=== PATIENT | male | born 1985 | race Hispanic/Latino ===

== ENCOUNTER 2016-07-07 21:08 | Emergency (ER) | payer OTHER, SELFPAY ==
[2016-07-07 21:27] VITALS: BMI 273.1
[2016-07-07 21:29] VITALS: RESP 16; O2SAT 98
--- NOTE | 2016-07-07 21:33 | ED PDOC ---
Arrival/HPI - General Chief Complaint: GI Problem Time Seen by Provider: 07/07/16 21:32 Historian: Patient - History of Present Illness Narrative History of Present Illness (Text): 07/07/16 21:33 31 y/o male, no significant pmh, allergic to penicillin/vancomycin, c/o nausea/ vomiting started this morning. Pt. stated that he went out to drink last night which he had many bottles of drinks, woke up this morning with nausea and vomiting, stated that he has testicle pain from the vomiting, no night sweat, no penile discharge, no urinary symptoms, no other medical or psychological complaints. Past Medical History - Provider Review Nursing Documentation Reviewed: Yes - Psychiatric Hx Substance Use: No - Anesthesia Hx Anesthesia: No Family/Social History - Physician Review Nursing Documentation Reviewed: Yes Family/Social History: Unknown Family HX Smoking Status: Never Smoked Hx Alcohol Use: Yes Frequency of alcohol use: Socially Hx Substance Use: No Allergies/Home Meds Allergies/Adverse Reactions: Allergies Penicillins Allergy (Verified 07/07/16 21:27) RASH vancomycin Allergy (Verified 07/07/16 21:27) RASH ppd serum Allergy (Uncoded 07/07/16 21:27) RASH Review of Systems - Review of Systems Constitutional: absent: Fatigue, Fevers Eyes: absent: Vision Changes ENT: absent: Hearing Changes Respiratory: absent: Cough, Sputum Cardiovascular: absent: Chest Pain Gastrointestinal: Abdominal Pain, Nausea, Vomiting. absent: Diarrhea Genitourinary Male: absent: Dysuria, Frequency, Hematuria, Urinary Output Changes Musculoskeletal: absent: Arthralgias, Back Pain, Neck Pain Skin: absent: Rash, Pruritis, Skin Lesions, Laceration, Abscess Neurological: absent: Headache, Dizziness, Focal Weakness, Gait Changes, Speech Changes, Facial Droop, Disequilibrium, Seizure Physical Exam Vital Signs Reviewed: Yes Vital Signs Temp Pulse Resp BP Pulse Ox 07/07/16 21:28 99.2 F 91 H 16 121/83 98 Temperature: Afebrile Blood Pressure: Normal Pulse: Regular Respiratory Rate: Normal Appearance: Positive for: Well-Appearing, Non-Toxic, Comfortable Pain Distress: Mild Mental Status: Positive for: Alert and Oriented X 3 - Systems Exam Head: Present: Atraumatic, Normocephalic Pupils: Present: PERRL Extroacular Muscles: Present: EOMI Conjunctiva: Present: Normal Mouth: Present: Moist Mucous Membranes Neck: Present: Normal Range of Motion Respiratory/Chest: Present: Clear to Auscultation, Good Air Exchange. No: Respiratory Distress, Accessory Muscle Use Cardiovascular: Present: Regular Rate and Rhythm, Normal S1, S2. No: Murmurs Abdomen: Present: Tenderness (+epigastric tenderness, negative bailey.), Normal Bowel Sounds. No: Distention, Peritoneal Signs Genitourinary Male: Present: Normal External Genitalia, Circumcised Penis. No: Lesions, Penile Discharge, Testicle Tenderness, Penile Swelling, Masses, Erythema, Hernias, Testicle Swelling Back: Present: Normal Inspection Upper Extremity: Present: Normal Inspection. No: Cyanosis, Edema Lower Extremity: Present: Normal Inspection. No: Edema Neurological: Present: GCS=15, CN II-XII Intact, Speech Normal Skin: Present: Warm, Dry, Normal Color. No: Rashes Psychiatric: Present: Alert, Oriented x 3, Normal Insight, Normal Concentration Medical Decision Making ED Course and Treatment: 07/07/16 21:41 -labs -ua -testicular sonogram -IVF/pepcid/zofran -observe and reassess 07/07/16 23:39 -Labs are non-significant. -Sonogram show there is epidymyal cyst on the lt. testicle. -Pain resolved, eating and drinking well, wants to be discharged home, will discharge home. -Discharge home with pepcid, zofran, stay hydrated, follow up with your own pmd and urologist within 2 days, return to the ER for any new or worsening signs or symptoms. - Lab Interpretations Lab Results: 07/07/16 22:22 07/07/16 22:22 Lab Results 07/07/16 22:22: WBC 10.2, RBC 5.11, Hgb 16.6, Hct 46.1, MCV 90.2, MCH 32.5, MCHC 36.0, RDW 12.8, Plt Count 273, MPV 9.6, Gran % 74.8 H, Lymph % (Auto) 16.9 L, [place] % (Auto) 7.8 H, Eos % (Auto) 0.3 L, Baso % (Auto) 0.2, Gran # 7.63 H, Lymph # 1.7, [place] # 0.8 H, Eos # 0.0, Baso # 0.02, Sodium 140, Potassium 4.0, Chloride 96 L, Carbon Dioxide 31, Anion Gap 17, BUN 20, Creatinine 1.2, Est GFR ( Amer) > 60, Est GFR (Non-Af Amer) > 60, Random Glucose 93, Calcium 10.7 H, Magnesium 2.1, Total Bilirubin 1.3, AST 33, ALT 38, Alkaline Phosphatase 92, Total Protein 9.4 H, Albumin 5.1 H, Globulin 4.3, Albumin/ Globulin Ratio 1.2, Lipase 53, Salicylates < 1 L, Acetaminophen < 10.0 L, Alcohol, Quantitative < 10 I have reviewed the lab results: Yes Interpretation: No clinic. lab abnormalty - RAD Interpretation Radiology Orders: 07/07/16 21:37 TESTES DUPLEX COMPLETE [US] Stat EXAM: US Scrotum CLINICAL HISTORY: 31 years old, male; Pain; Scrotum pain; Additional info: Testicular pain TECHNIQUE: Real-time ultrasound of the scrotum with color Doppler and image documentation. COMPARISON: No relevant prior studies available. FINDINGS: Right testicle: Unremarkable in echogenicity and size measuring 4.8 x 2.3 x 3.2 cm. No mass. No torsion. Left testicle: Unremarkable in echogenicity and size measuring 5.6 x 2.1 x 3.5 cm. No mass. No torsion. Epididymides: The right epididymis is unremarkable. A left-sided epididymal head cyst is identified measuring 7.6 x 5.7 x 5.8 mm. Scrotum: Unremarkable. IMPRESSION: Left-sided epididymal head cyst, as detailed above. Dictated By: Candy Valero MD Dictated Date/Time: 07/07/162313 Signed By: Candy Valero MD Date Signed: [id number] Transcribed By: FERNANDO Transcribe Date/Time : 07/07/162313 Open Cut Examiner: Radiologist - Medication Orders Current Medication Orders: Discontinued Medications Famotidine (Pepcid) 20 mg IVP STAT STA Stop: 07/07/16 21:38 Last Admin: 07/07/16 22:29 Dose: 20 MG IVP Administration Document 07/07/16 22:29 [facility] (Rec: 07/07/16 22:29 [email or web address]) Charges for Administration # of IVP Administrations 1 Sodium Chloride (Sodium Chloride 0.9%) 1,000 mls @ 999 mls/hr IV .Q1H1M STA Stop: 07/07/16 22:37 Last Admin: 07/07/16 22:29 Dose: 999 MLS/HR eMAR Start Stop Document 07/07/16 22:29 [facility] (Rec: 07/07/16 22:29 [email or web address]) Intravenous Solution Start Date 07/07/16 Start Time 22:29 End Date 07/07/16 End time 23:30 Total Infusion Time 61 Ondansetron HCl (Zofran Inj) 4 mg IVP STAT STA Stop: 07/07/16 21:38 Last Admin: 07/07/16 22:29 Dose: 4 MG IVP Administration Document 07/07/16 22:29 [facility] (Rec: 07/07/16 22:29 [email or web address]) Charges for Administration # of IVP Administrations 1 - PA / [employer] / Resident Statement / has reviewed & agrees with the documentation as recorded. Disposition/Present on Arrival - Present on Arrival Any Indicators Present on Arrival: No History of DVT/PE: No History of Uncontrolled Diabetes: No Urinary Catheter: No History of Decub. 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 Prescriptions: Famotidine [Pepcid] 20 mg PO BID PRN #14 tab PRN Reason: Other Ondansetron [Zofran] 4 mg PO Q8H PRN #10 tab PRN Reason: Nausea/Vomiting Referrals: Eladio Arguello DO [Staff Provider] - Follow up with primary Sacha Hill MD [Staff Provider] - Follow up with primary Forms: WORK NOTE
[2016-07-07] MEDS ORDERED: Sodium Chloride 0.9% 1,000 ML IV STA (21:37)
[2016-07-07 22:33] LABS: ADD MANUAL DIFF? NO
[2016-07-07 22:42] LABS: BASO # 0.02 K/mm3 (0.0-2.0); BASO % 0.2 % (0.0-3.0); EOS % 0.3 % (1.5-5.0); GRAN # 7.63 (1.4-6.5); GRAN % 74.8 % (50.0-68.0); HEMATOCRIT 46.1 % (42.0-52.0); LYMPH # 1.7 (1.2-3.4); LYMPH % 16.9 % (22.0-35.0); MEAN CELL VOLUME 90.2 fL (80.0-105.0); MEAN CORPUSCULAR HEMOGLOBIN 32.5 pg (25.0-35.0); MEAN PLATELET VOLUME 9.6 fl (7.0-11.0); MONO # 0.8 (0.1-0.6); MONO % 7.8 % (1.0-6.0); PLATELET COUNT 273 10^3/uL (120.0-450.0); RED CELL DISTRIBUTION WIDTH 12.8 % (11.5-14.5); WHITE BLOOD COUNT 10.2 10^3/ul (4.5-11.0)
[2016-07-07 22:59] LABS: ALB/GLOB RATIO 1.2 (1.1-1.8); ALKALINE PHOSPHATASE 92 U/L (38-133); ALT/SGPT 38 U/L (7-56); AST/SGOT 33 U/L (15-59); BILIRUBIN,TOTAL 1.3 mg/dL (0.2-1.3); BLOOD UREA NITROGEN 20 mg/dL (7-21); CALCIUM 10.7 mg/dL (8.4-10.5); CARBON DIOXIDE 31 mmol/L (21-33); CHLORIDE 96 mmol/L (98-107); GFR AFRICAN-AMERICAN > 60; GLUCOSE,RANDOM 93 mg/dL (70-110); LIPASE 53 U/L (23-300); MAGNESIUM 2.1 mg/dL (1.7-2.2); SODIUM 140 mmol/L (132-148); TOTAL PROTEIN 9.4 g/dL (5.8-8.3)
--- NOTE | 2016-07-07 23:15 | US ---
EXAM: US Scrotum CLINICAL HISTORY: 31 years old, male; Pain; Scrotum pain; Additional info: Testicular pain TECHNIQUE: Real-time ultrasound of the scrotum with color Doppler and image documentation. COMPARISON: No relevant prior studies available. FINDINGS: Right testicle: Unremarkable in echogenicity and size measuring 4.8 x 2.3 x 3.2 cm. No mass. No torsion. Left testicle: Unremarkable in echogenicity and size measuring 5.6 x 2.1 x 3.5 cm. No mass. No torsion. Epididymides: The right epididymis is unremarkable. A left-sided epididymal head cyst is identified measuring 7.6 x 5.7 x 5.8 mm. Scrotum: Unremarkable. IMPRESSION: Left-sided epididymal head cyst, as detailed above.
[2016-07-08 00:04] VITALS: BP 123/62; PULSE 80; TEMP 97.8
== END 2016-07-08 00:04 | disposition home or self-care (01) ==
LOC: ED 21:08
DX: K29.20 Alcoholic gastritis without bleeding (principal); N50.3 Cyst of epididymis
CPT/HCPCS: 80053; 83690; 83735; 85025; 93975; 96361; 96374; 96375; 99283; G0480; J2405; J7040